=== PATIENT | male | born 1980 | race Caucasian/White ===

== ENCOUNTER → 2023-02-25 | Outpatient (CLI) | payer BC | LOC: M RAD 15:19 | PROVIDERS: ATTEND Urology | DX: N49.2 Inflammatory disorders of scrotum (principal); N50.3 Cyst of epididymis ==

== ENCOUNTER → 2023-02-25 | Outpatient (REF) | payer BC ==
[2023-02-25 13:41] LABS: SEMEN APPEARANCE OPAQUE (OPAQUE); SEMEN VISCOSITY LIQUID (LIQUID)
[2023-02-25 13:42] LABS: SPERM CONCENTRATION 54.5 M/ml (>=15.0); WBC CONCENTRATION <=1 M/ml (<=1 M/ml)
== END ==
LOC: M SMT 13:22
PROVIDERS: ATTEND Urology
DX: N46.9 Male infertility, unspecified (principal)